=== PATIENT | female | born 1985 | race Two or more races ===

== ENCOUNTER 2019-03-26 14:35 | Emergency (ER) | payer BC, OTHER ==
[~2019-03-26] VITALS: Ht 167.6 cm; Wt 145.2 kg
[2019-03-26 15:49] LABS: BASOPHILS # (AUTO) 0.01 x10^3/uL (0-0.1); BASOPHILS % (AUTO) 0 % (0-1); EOSINOPHILS # (AUTO) 0.04 x10^3/uL (0-0.4); EOSINOPHILS % (AUTO) 0 % (1-7); LYMPHOCYTES # (AUTO) 1.14 x10^3/uL (1-3.4); LYMPHOCYTES % (AUTO) 10 % (22-44); MD NO; MEAN CORPUSCULAR HEMOGLOBIN 29.8 pg (27.0-34.8); MEAN CORPUSCULAR HGB CONC 33.3 g/dL (32.4-35.8); MEAN CORPUSCULAR VOLUME 89.6 fL (80-100); MEAN PLATELET VOLUME 7.9 fL (7.4-10.4); MONOCYTES # (AUTO) 0.18 x10^3/uL (0.2-0.8); MONOCYTES % (AUTO) 2 % (2-9); NEUTROPHILS # (AUTO) 10.58 x10^3/uL (1.8-6.8); NEUTROPHILS % (AUTO) 89 % (42-75); PLATELET COUNT 275 x10^3/uL (130-400); RED BLOOD COUNT 4.31 x10^6/uL (3.82-5.3); RED CELL DISTRIBUTION WIDTH 14.5 % (9.6-15.2)
[2019-03-26 15:54] LABS: ALBUMIN 3.6 g/dL (3.4-5.0); ANION GAP 8 mmol/L (5-15); CALCIUM 8.1 mg/dL (8.5-10.1); CHLORIDE 107 mmol/L (98-107)
[2019-03-26 16:00] LABS: ALANINE AMINOTRANSFERASE 21 U/L (12-78); ALKALINE PHOSPHATASE 89 U/L (45-117); BILIRUBIN,TOTAL 1.2 mg/dL (0.2-1.0); CREATININE 0.92 mg/dL (0.55-1.02); TOTAL PROTEIN 8.1 g/dL (6.4-8.2)
--- NOTE | 2019-03-26 16:11 | NUR ---
JAYDA RN: BERNIE SENT FROM [employer] [employer]
[2019-03-26 16:23] LABS: MICROSCOPIC INDICATED
[2019-03-26 16:26] LABS: CULTURE INDICATED? YES
[2019-03-26 18:16] VITALS: BP 141/87
--- NOTE | 2019-03-26 18:55 | NUR ---
PT TO RM FROM LOBBY. ERMD AT BEDSIDE, PLAN TO D/C.
--- NOTE | 2019-03-26 19:02 | NUR ---
REPORT TO NOC RN
--- NOTE | 2019-03-26 19:07 | NUR ---
RECEIVED REPORT FROM WINDY Gardiner RN, ASSUMING CARE OF PT
== END 2019-03-26 19:27 | disposition home or self-care (01) ==
LOC: ED 19:12
DX: A09 Infectious gastroenteritis and colitis, unspecified (principal); F32.9 Major depressive disorder, single episode, unspecified
CPT/HCPCS: 36415; 74021; 80053; 81001; 83690; 84703; 85025; 87086; 99284